=== PATIENT | male | born 1985 | race Two or more races ===

== ENCOUNTER 2020-05-19 22:28 | Inpatient (IN) | payer MEDICAID ==
[~2020-05-19] VITALS: Ht 190.5 cm; Wt 113.3 kg
[2020-05-20] MEDS ORDERED: HALOPERIDOL 5 MG TABLET PO PRN (05:45)
[2020-05-20] MEDS ORDERED: IBUPROFEN 400 MG TABLET PO PRN (08:45)
[2020-05-20] MEDS ORDERED: CloNIDine HCL 0.1 MG TABLET PO PRN (08:45)
[2020-05-20] MEDS ORDERED: NICOTINE 14 MG/24 HOUR PATCH TD PRN (08:45)
[2020-05-20] MEDS ORDERED: DOCUSATE SODIUM 100 MG CAPSULE PO PRN (08:45)
[2020-05-20] MEDS ORDERED: MAGNESIUM HYDROXIDE SUSPENSION 30 ML UDCUP PO PRN (08:45)
[2020-05-20] MEDS ORDERED: ONDANSETRON HCL 4 MG TABLET PO PRN (08:45)
[2020-05-20] MEDS ORDERED: PETROLATUM,WHITE 28 GM JELLY TP PRN (08:45)
[2020-05-20] MEDS ORDERED: GuaiFENesin/D-METHORPHAN [SUGAR-FREE] 200-20MG/10 ML SYRUP UDCUP PO PRN (08:45)
[2020-05-20] MEDS ORDERED: MAG HYDROX/AL HYDROX/SIMETH ES 30 ML SUSPENSION UDCUP PO PRN (08:45)
[2020-05-20] MEDS ORDERED: LOPERAMIDE HCL 2 MG CAPSULE PO PRN (08:45)
[2020-05-20] MEDS ORDERED: ALBUTEROL SULFATE HFA 90 MCG/PUFF 8 GM INHALER IH PRN (08:45)
[2020-05-20] MEDS ORDERED: ACETAMINOPHEN 325 MG TABLET PO PRN (08:45)
[2020-05-20 14:15] VITALS: BP 134/67
[2020-05-20 16:00] VITALS: BP 134/75
[2020-05-20] MEDS: ZOLPIDEM TARTRATE 10 MG TABLET PO PRN (20:57)
[2020-05-21 00:47] VITALS: BP 131/76
[2020-05-21 07:40] LABS: EOSINOPHILS % (AUTO) 3.1 % (1.0-6.0); HEMATOCRIT 42.8 % (41-53); LYMPHOCYTES % (AUTO) 35.6 % (22.0-44.0); MEAN CORPUSCULAR HEMOGLOBIN 32.1 pg (26.0-34.0); MEAN CORPUSCULAR HGB CONC 34.9 G/dL (31.0-37.0); MEAN CORPUSCULAR VOLUME 92 fL (80-100); MONOCYTES # (AUTO) 0.6 K/uL (0.1-1.0); MONOCYTES % (AUTO) 11.4 % (2.0-9.0); NEUTROPHILS # (AUTO) 2.7 K/uL (1.8-7.7); NEUTROPHILS % (AUTO) 48.9 % (40.0-70.0); PLATELET COUNT (AUTO) 186 K/uL (150-450); RED BLOOD CELL COUNT(AUTO) 4.67 MIL/uL (4.50-5.90); RED CELL DISTRIBUTION WIDTH 12.8 % (11.5-14.5)
[2020-05-21 08:19] LABS: ALANINE AMINOTRANSFERASE 26 U/L (12-78); ALBUMIN 3.5 g/dL (3.4-5.0); ALKALINE PHOSPHATASE 53 U/L (46-116); ANION GAP 7 mmol/L (8-16); ASPARTATE AMINOTRANSFERASE 15 U/L (15-37); BILIRUBIN,TOTAL 1.4 mg/dL (0.1-1.0); CALCIUM, TOTAL 8.5 mg/dL (8.8-10.5); CARBON DIOXIDE 28 mmol/L (22-29); CHLORIDE 104 mmol/L (98-107); CHOL/HDL RATIO 4.2 (4.2-7.3); CHOLESTEROL 139 mg/dL (131-200); CREATININE 0.85 mg/dL (0.60-1.30); FREE T4 (FREE THYROXINE) 1.25 ng/dL (0.76-1.46); GLOMERULAR FILTR. RATE CALC > 60 mL/min (>60); GLUCOSE,RANDOM 83 mg/dL (70-110); HDL CHOLESTEROL 33 mg/dL (40-60); LDL CHOL (CALC.) 94 mg/dL (0-130); POTASSIUM 3.4 mmol/L (3.5-5.1); SODIUM SERUM 139 mmol/L (136-145); THYROID STIMULATING HORMONE 0.46 uIU/mL (0.36-3.74); TOTAL PROTEIN, SERUM 6.7 g/dL (6.4-8.2); TRIGLYCERIDES 62 mg/dL (15-150); UREA NITROGEN, BLOOD 12 mg/dL (7-18)
[2020-05-21] MEDS: BuPROPion HCL XL 150 MG ER TABLET PO SCH (08:23)
[2020-05-21] MEDS: GABAPENTIN 300 MG CAPSULE PO SCH ×2 (08:23→16:08)
[2020-05-21 09:20] LABS: BILIRUBIN,URINE NEGATIVE (NEGATIVE); GLUCOSE, URINE (UA) NEGATIVE (NEGATIVE); KETONES,URINE NEGATIVE (NEGATIVE); LEUKOCYTE ESTERASE ,URINE NEGATIVE (NEGATIVE); NITRATE,URINE NEGATIVE (NEGATIVE); OCCULT BLOOD,URINE NEGATIVE (NEGATIVE); PROTEIN,URINE NEGATIVE (NEGATIVE); UROBILINOGEN,URINE 0.2 mg/dL (<=1.0)
[2020-05-21 09:25] LABS: AMPHET/METH SCREEN,URINE NEGATIVE (NEGATIVE); BARBITURATE SCREEN, URINE NEGATIVE (NEGATIVE); BENZODIAZEPINES SCREEN,URINE NEGATIVE (NEGATIVE); CANNABINOID SCREEN,URINE POSITIVE (NEGATIVE); COCAINE SCREEN,URINE NEGATIVE (NEGATIVE); METHADONE SCREEN, URINE NEGATIVE (NEGATIVE); OPIATE SCREEN,URINE NEGATIVE (NEGATIVE)
[2020-05-21 09:33] LABS: PHENCYCLIDINE SCREEN,URINE NEGATIVE (NEGATIVE)
[2020-05-21 09:34] LABS: APPEARANCE,URINE HAZY (CLEAR)
[2020-05-21 10:11] VITALS: BP 118/65
[2020-05-21 17:45] VITALS: BP 129/85
[2020-05-21] MEDS: ZOLPIDEM TARTRATE 10 MG TABLET PO PRN (21:27)
[2020-05-22 01:11] VITALS: BP 131/60
[2020-05-22] MEDS: LORazepam 2 MG TABLET PO PRN ×2 (03:45→16:01)
[2020-05-22] MEDS: BuPROPion HCL XL 150 MG ER TABLET PO SCH (09:44)
[2020-05-22] MEDS: GABAPENTIN 300 MG CAPSULE PO SCH ×2 (09:44→16:01)
[2020-05-22 09:55] VITALS: BP 130/80
[2020-05-22 17:15] VITALS: BP 134/84
[2020-05-22] MEDS: ZOLPIDEM TARTRATE 10 MG TABLET PO PRN (22:02)
[2020-05-23] VITALS: BP 126/74
[2020-05-23] MEDS: BuPROPion HCL XL 150 MG ER TABLET PO SCH (08:59)
[2020-05-23] MEDS: GABAPENTIN 300 MG CAPSULE PO SCH ×2 (09:00→17:12)
[2020-05-23 09:06] VITALS: BP 143/90
[2020-05-23 16:15] VITALS: BP 137/74
[2020-05-23] MEDS: ZOLPIDEM TARTRATE 10 MG TABLET PO PRN (22:06)
[2020-05-24 00:16] VITALS: BP 140/80
[2020-05-24 08:28] VITALS: BP 141/65
[2020-05-24] MEDS: GABAPENTIN 300 MG CAPSULE PO SCH ×2 (08:34→16:59)
[2020-05-24] MEDS: BuPROPion HCL XL 150 MG ER TABLET PO SCH (08:34)
[2020-05-24] MEDS: LORazepam 2 MG TABLET PO PRN (08:34)
[2020-05-24 16:10] VITALS: BP 134/75
[2020-05-24] MEDS: ZOLPIDEM TARTRATE 10 MG TABLET PO PRN (22:10)
[2020-05-25 01:00] VITALS: BP 139/80
[2020-05-25] MEDS: BuPROPion HCL XL 150 MG ER TABLET PO SCH (08:40)
[2020-05-25] MEDS: GABAPENTIN 300 MG CAPSULE PO SCH ×2 (08:40→16:25)
[2020-05-25 09:48] VITALS: BP 140/87
[2020-05-25 16:12] VITALS: BP 143/91
[2020-05-25] MEDS: LORazepam 2 MG TABLET PO PRN (23:50)
[2020-05-25] MEDS: ZOLPIDEM TARTRATE 10 MG TABLET PO PRN (23:50)
[2020-05-26 01:27] VITALS: BP 135/78
[2020-05-26 04:10] VITALS: BP 142/73
[2020-05-26] MEDS: GABAPENTIN 300 MG CAPSULE PO SCH ×2 (08:35→16:33)
[2020-05-26] MEDS: BuPROPion HCL XL 150 MG ER TABLET PO SCH (08:35)
[2020-05-26 08:47] VITALS: BP 131/67
[2020-05-26 16:11] VITALS: BP 139/90
[2020-05-26] MEDS: LORazepam 2 MG TABLET PO PRN (23:29)
[2020-05-26] MEDS: ZOLPIDEM TARTRATE 10 MG TABLET PO PRN (23:29)
[2020-05-27 02:09] VITALS: BP 123/80
[2020-05-27] MEDS: BuPROPion HCL XL 150 MG ER TABLET PO SCH (08:04)
[2020-05-27] MEDS: GABAPENTIN 300 MG CAPSULE PO SCH (08:04)
[2020-05-27 08:22] VITALS: BP 136/77
[2020-05-27] MEDS ORDERED: GABA-1181 PO (10:39)
[2020-05-27] MEDS ORDERED: BUPR-93 PO (10:39)
== END 2020-05-27 13:30 | disposition home or self-care (01) | DRG 753 ==
LOC: B2S 05-20 03:43
PROVIDERS: ADMIT Psychiatry & Neurology Psychiatry; ATTEND Psychiatry & Neurology Psychiatry
DX: F31.30 Bipolar disorder, current episode depressed, mild or moderate severity, unspecified (principal); E87.6 Hypokalemia; I10 Essential (primary) hypertension; E80.6 Other disorders of bilirubin metabolism; R45.851 Suicidal ideations; Z83.3 Family history of diabetes mellitus; Z91.19 Patient's noncompliance with other medical treatment and regimen; Z91.5 Personal history of self-harm; Z79.899 Other long term (current) drug therapy
CPT/HCPCS: 80307; 84132; 84439; 84443; G0480

== ENCOUNTER 2020-05-20 07:38 | Emergency (ER) | payer MEDICAID, OTHER ==
[~2020-05-20] VITALS: Ht 180.3 cm; Wt 90.9 kg
[2020-05-20 13:08] VITALS: BP 139/76
== END 2020-05-20 13:18 | disposition home or self-care (01) ==
LOC: EMS 07:42
DX: F31.9 Bipolar disorder, unspecified (principal); R50.9 Fever, unspecified; I10 Essential (primary) hypertension; F12.90 Cannabis use, unspecified, uncomplicated; Z20.828 Contact with and (suspected) exposure to other viral communicable diseases
CPT/HCPCS: 87426; Z7502

== ENCOUNTER 2021-01-09 16:53 | Emergency (ER) | payer OTHER ==
[~2021-01-09] VITALS: Ht 190.5 cm; Wt 114.5 kg
[~2021-01-09 16:53] MED LIST: BUPR-93 PO; GABA-1181 PO
[2021-01-09 19:11] LABS: APPEARANCE,URINE CLEAR (CLEAR); BILIRUBIN,URINE NEGATIVE (NEGATIVE); GLUCOSE, URINE (UA) NEGATIVE (NEGATIVE); KETONES,URINE NEGATIVE (NEGATIVE); LEUKOCYTE ESTERASE ,URINE NEGATIVE (NEGATIVE); NITRATE,URINE NEGATIVE (NEGATIVE); OCCULT BLOOD,URINE NEGATIVE (NEGATIVE); PH,URINE 5.5 (5.0-8.0); PROTEIN,URINE NEGATIVE (NEGATIVE); UROBILINOGEN,URINE 0.2 mg/dL (<=1.0)
[2021-01-09] MEDS ORDERED: KETOROLAC TROMETHAMINE 60 MG/2 ML VIAL IM ONE (19:15)
[2021-01-09 21:18] VITALS: BP 122/68
== END 2021-01-09 21:32 | disposition home or self-care (01) ==
LOC: EMS 16:59
DX: S39.011A Strain of muscle, fascia and tendon of abdomen, initial encounter (principal); I86.1 Scrotal varices; I10 Essential (primary) hypertension; F12.90 Cannabis use, unspecified, uncomplicated; Z91.018 Allergy to other foods; X58.XXXA Exposure to other specified factors, initial encounter; Y93.89 Activity, other specified; Y92.89 Other specified places as the place of occurrence of the external cause; Y99.8 Other external cause status
CPT/HCPCS: 76870; 81003; 96372; 99284; J1885

== ENCOUNTER 2021-04-07 09:12 | Emergency (ER) | payer MEDICAID ==
[~2021-04-07] VITALS: Ht 190.5 cm; Wt 113.6 kg
[2021-04-07] MEDS ORDERED: KETOROLAC TROMETHAMINE 60 MG/2 ML VIAL IM ONE (10:15)
[2021-04-07] MEDS ORDERED: METHOCARBAMOL 500 MG TABLET PO ONE (10:15)
[2021-04-07 11:00] VITALS: BP 128/55
[2021-04-07] MEDS ORDERED: MORPHINE SULFATE 4 MG/ML SYRINGE IM ONE (11:15)
== END 2021-04-07 12:34 | disposition home or self-care (01) ==
LOC: EMS 09:13
DX: M48.061 Spinal stenosis, lumbar region without neurogenic claudication (principal); I10 Essential (primary) hypertension; Z79.899 Other long term (current) drug therapy
CPT/HCPCS: 96372; 99284; J1885; J2270